=== PATIENT | male | born 1965 | race Two or more races ===

== ENCOUNTER 2017-03-04 05:27 | Emergency (ER) | payer BC ==
[~2017-03-04] VITALS: Ht 190.5 cm; Wt 89.8 kg
--- NOTE | 2017-03-04 05:30 | NUR ---
PT CAME FROM HOME WITH NOSE BLEED, NON TRAUMA, X 20 MIN, BRIGHT RED BLOOD FROM L NARE, BREATHING UNLABORED, NO C/O PAIN, STATES "HAD SINUS SX X 1 WEEK AGO AT [facility], I WOKE UP AND FELT MY NOSE BLEEDING"
--- NOTE | 2017-03-04 05:35 | NUR ---
NASAL CLAMP APPLIED TO NOSE
--- NOTE | 2017-03-04 06:20 | NUR ---
PT GIRL FRIEND IRRITATED STATES "THIS PLACE IS A SHIT HOLE, WE WANT TO BE DISCHARGED NOW" INFORMED PT THAT ER MD WAS WITH A PT AT THIS TIME AND I WOULD INFORM HIM WHEN HE WAS AVAILABLE PER GIRL FRIEND "WE ARE LEAVING NOW, IM NOT WAITING FOR SOME BULLSHIT DOCTOR" PT A/O X 4, BREATHING UNLABORED, NO ACTIVE BLEEDING WITH NASAL CLAMP, VS STABLE, PT LEFT WITHOUT D/C PAPERS, ER MADE AWARE
[2017-03-04 06:46] VITALS: BP 138/77
== END 2017-03-04 06:47 | disposition home or self-care (01) ==
LOC: ER 05:29
DX: R04.0 Epistaxis (principal); I10 Essential (primary) hypertension; Z98.890 Other specified postprocedural states
CPT/HCPCS: 99283; A4606; Z7610